=== PATIENT | female | born 1995 | race Caucasian/White ===

== ENCOUNTER → 2017-03-02 | Outpatient (CLI) | payer OTHER ==
--- NOTE | 2017-03-02 15:48 | MR ---
EXAMINATION TYPE: MR lumbar spine wo con DATE OF EXAM: 03/02/2017 COMPARISON: NONE HISTORY: lumbago TECHNIQUE: Multiplanar, multisequence images of the lumbar spine were acquired. L1-L2: Normal disc appearance without desiccation. No herniation, protrusion or disc bulging. No ca nal stenosis is present. Foramina are patent bilaterally. L2-L3: Normal disc appearance without desiccation. No herniation, protrusion or disc bulging. No ca nal stenosis is present. Foramina are patent bilaterally. L3-L4: Normal disc appearance without desiccation. No herniation, protrusion or disc bulging. No ca nal stenosis is present. Foramina are patent bilaterally. L4-L5: Normal disc appearance without desiccation. No herniation, protrusion or disc bulging. No ca nal stenosis is present. Foramina are patent bilaterally. L5-S1: Small broad-based disc bulge is seen without focality to suggest herniation. No neural foramin al narrowing or spinal canal stenosis.. The lumbar spine maintains normal vertebral body height and alignment. No paraspinal masses are iden tified. Conus medullaris has a normal appearance. Bilateral extrarenal pelvises are noted of the kid neys. Rudimentary disc is incidentally noted at S1-S2. Small vertebral body hemangioma seen of L3 pos teriorly and left paracentrally that is T1 and T2 hyperintense. This is a benign finding. IMPRESSION: No evidence of disc herniation, spinal canal stenosis or neural foraminal narrowing. Small broad-base d disc bulge at L5-S1.
== END | disposition home or self-care (01) ==
LOC: RADMRIMAIN 12:25
PROVIDERS: ATTEND Family Medicine
DX: M51.27 Other intervertebral disc displacement, lumbosacral region (principal)
CPT/HCPCS: 72148

== ENCOUNTER 2018-01-25 05:50 | Inpatient (IN) | payer OTHER ==
[2018-01-25] MEDS ORDERED: OXYTOCIN 10 UNIT/ML 1 ML VIAL IM PRN (06:16)
[2018-01-25] MEDS ORDERED: CARBOPROST TROMETHAMINE 250 MCG/ML 1 ML AMP IM PRN (06:16)
[2018-01-25] MEDS ORDERED: TERBUTALINE 1 MG/ML VIAL SQ PRN (06:16)
[2018-01-25] MEDS ORDERED: PENICILLIN G POTASSIUM 5,000,000 UNIT in DEXTROSE 5% IN WATER 100 ML IVPB STA ×2 (06:16)
[2018-01-25] MEDS ORDERED: METHYLERGONOVINE 0.2 MG/ML 1 ML AMP IM PRN (06:16)
[2018-01-25] MEDS ORDERED: LIDOCAINE 1% (PF) 10 MG/ML (30 ML SDV) SQ PRN (06:16)
[2018-01-25] MEDS ORDERED: BUTORPHANOL 1 MG/ML 1 ML VIAL IV PRN (06:17)
[2018-01-25] MEDS ORDERED: CLINDAMYCIN 900 MG in DEXTROSE 5% IN WATER 50 ML IVPB STA ×2 (06:31)
[2018-01-25 06:46] VITALS: BMI 27.8
[2018-01-25] MEDS: LACTATED RINGERS 1,000 ML IV SCH ×2 (06:55→21:34)
[2018-01-25 06:56] LABS: Basophils # (A) 0.1 k/uL (0-0.2); Basophils % (A) 0 %; Eosinophils # (A) 0.2 k/uL (0-0.7); Eosinophils % (A) 1 %; HCT 32.5 % (34.0-46.0); HGB 10.4 gm/dL (11.4-16.0); Lymphocytes # (A) 1.8 k/uL (1.0-4.8); Lymphocytes % (A) 13 %; MCH 28.6 pg (25.0-35.0); MCHC 32.1 g/dL (31.0-37.0); Mean Platelet Volume 7.9; Monocytes # (A) 0.4 k/uL (0-1.0); Monocytes % (A) 3 %; Neutrophils # (A) 11.3 k/uL (1.3-7.7); Neutrophils % (A) 81 %; Platelet Count 202 k/uL (150-450); RBC 3.65 m/uL (3.80-5.40); RDW 14.5 % (11.5-15.5); WBC 13.9 k/uL (3.8-10.6)
[2018-01-25] MEDS ORDERED: ACETAMINOPHEN TAB 325 MG TAB PO PRN (09:38)
[2018-01-25] MEDS ORDERED: diphenhydrAMINE 50 MG CAP PO PRN (09:38)
[2018-01-25] MEDS ORDERED: HYDROCORTISONE 2.5% RECTAL CREAM 30 GM TUBE RECTAL PRN (09:38)
[2018-01-25] MEDS ORDERED: LANOLIN CREAM 5 GM TUBE TOPICAL PRN (09:38)
[2018-01-25] MEDS ORDERED: diphenhydrAMINE 25 MG CAP PO PRN (09:38)
[2018-01-25] MEDS ORDERED: WITCH HAZEL 1 EACH MED..PAD TOPICAL PRN (09:38)
[2018-01-25] MEDS ORDERED: SIMETHICONE 80 MG CHEWABLE PO PRN (09:38)
[2018-01-25] MEDS ORDERED: diphenhydrAMINE 50 MG/ML 1 ML VIAL IVP PRN ×2 (09:38)
[2018-01-25] MEDS ORDERED: BENZOCAINE/MENTHOL SPRAY 1 GM/SPRAY AEROSOL TOPICAL PRN (09:38)
[2018-01-25] MEDS ORDERED: ZOLPIDEM 5 MG TAB PO PRN (09:38)
--- NOTE | 2018-01-25 09:44 | P.HPOB ---
History of Present Illness H&P Date: 01/25/18 Chief Complaint: IUP at 41-0/7 weeks, active labor This is a 22-year-old 1 para 0 at 41-0/7 weeks with an estimated due date 01/21/2018. Patient presents with regular strong contractions for 2 hours prior to admission. Patient denied vaginal bleeding, loss of fluid and notes good movement On blood work her blood type is O+, rubella immune, hepatitis B surface antigen negative, HIV negative, RPR nonreactive, GBS positive. She does have a history of marijuana use in the last urine drug screen the office was negative. Review of Systems Constitutional: Reports fatigue, Denies chills, Denies fever Cardiovascular: Reports edema Respiratory: Denies cough, Denies dyspnea Gastrointestinal: Denies constipation, Denies diarrhea Genitourinary: Reports Past Medical History Past Medical History: Asthma Additional Past Medical History / Comment(s): ASTHMA A CHILD, LAST SEIZURE AT AGE 1 History of Any Multi-Drug Resistant Organisms: None Reported Past Surgical History: Adenoidectomy, Orthopedic Surgery, Tonsillectomy Additional Past Surgical History / Comment(s): RIGHT GREAT TOE Past Anesthesia/Blood Transfusion Reactions: No Reported Reaction Past Psychological History: Depression Smoking Status: Never smoker Past Alcohol Use History: Occasional Past Drug Use History: Marijuana - Past Family History Mother Family Medical History: Cancer Additional Family Medical History / Comment(s): COLON CANCER Father Family Medical History: Cancer Additional Family Medical History / Comment(s): LUNG CANCER Medications and Allergies Home Medications Medication Instructions Recorded Confirmed Type Pnv No.95/Ferrous Fum/Folic AC 1 tab PO ONCE 01/25/18 01/25/18 History [ Multivitamin Tablet] Allergies Allergy/AdvReac Type Severity Reaction Status Date / Time Penicillins Allergy Rash/Hives Verified 01/25/18 06:46 Sulfa (Sulfonamide Allergy Rash/Hives Verified 01/25/18 06:02 Antibiotics) Exam Osteopathic Statement: *. No significant issues noted on an osteopathic structural exam other than those noted in the History and Physical/Consult. Vital Signs Temp Pulse Resp BP Pulse Ox 01/25/18 06:30 96.9 F L 82 16 116/82 99 01/25/18 06:18 96.9 F L 82 16 116/82 99 Intake and Output 01/24/18 01/25/18 01/25/18 22:59 06:59 14:59 Other: Weight 71.214 kg - OBG Physical Exam Abdomen: Cervix: 7, 100, -2 Uterus: enlarged (Appropriate for gestational age) Results Result Diagrams: 01/25/18 06:43 Abnormal Lab Results - Last 24 Hours (Table) 01/25/18 Range/Units 06:43 WBC 13.9 H (3.8-10.6) k/uL RBC 3.65 L (3.80-5.40) m/uL Hgb 10.4 L (11.4-16.0) gm/dL Hct 32.5 L (34.0-46.0) % Neutrophils # 11.3 H (1.3-7.7) k/uL Assessment and Plan (1) Term Current Visit: Yes Status: Acute Code(s): Z34.80 - ENCOUNTER FOR SUPRVSN OF NORMAL , UNSP TRIMESTER SNOMED Code(s): 29508090 (2) Marijuana use Current Visit: Yes Status: Acute Code(s): F12.90 - CANNABIS USE, UNSPECIFIED , UNCOMPLICATED SNOMED Code(s): 481497095 (3) Positive GBS test Current Visit: Yes Status: Acute Code(s): B95.1 - STREPTOCOCCUS, GROUP B, CAUSING DISEASES CLASSD [facility] SNOMED Code(s): 2655752530097 Plan: Admit to labor and delivery with expectant management, anticipate spontaneous vaginal delivery later today. IV antibiotics for GBS prophylaxis
[2018-01-25] MEDS ORDERED: PRENATAL VIT-IRON-FOLIC ACID 1 EACH CAP PO ONE (09:45)
[2018-01-25] MEDS ORDERED: OXYTOCIN 20 UNITS/1000 ML NS 1,000 ML IV SCH (09:45)
--- NOTE | 2018-01-25 09:47 | P.PROBDLV ---
Vaginal Delivery Note - . Vaginal Delivery Note: This is a 22-year-old 1 para 0 at 41-0/7 weeks that presented in active labor. Patient was noted to be 7 cm just after admission. Artificial rupture of membranes was performed clear fluid was obtained. Patient progressed to complete began pushing and had a vacuum-assisted vaginal delivery secondary to bradycardia with , only one pole with pushing was used to deliver the infant, pressure was documented to be in the green once placed. fetus was noted to be in the occiput posterior presentation. The cord was then doubly clamped and cut after a 2 minute waiting period, the placenta was delivered intact with a three-vessel cord noted. Afterwards on inspection the patient's vaginal vault a second-degree vaginal laceration was noted lidocaine was instilled for anesthesia and this was repaired in the usual fashion. Afterwards a rectal exam was completed no abnormalities were noted. Inspection of the vaginal vault was performed no further lacerations were noted, second- degree laceration was noted to be intact after repair. Male was delivered at 9:15, spontaneous cry was noted, weight 6 lbs. 10 oz. with Apgars of 8 and 9 at one and 5 minutes respectively.
[2018-01-25] MEDS ORDERED: PENICILLIN G POTASSIUM 2,500,000 UNIT in DEXTROSE 5% IN WATER 100 ML IVPB SCH ×2 (10:30)
[2018-01-25] MEDS ORDERED: CLINDAMYCIN 900 MG in DEXTROSE 5% IN WATER 50 ML IVPB SCH ×2 (14:30)
[2018-01-25] MEDS: SENNOSIDES-DOCUSATE SODIUM 1 EACH TAB PO SCH (20:28)
[2018-01-26] MEDS: IBUPROFEN 600 MG TAB PO PRN ×2 (07:18→14:20)
[2018-01-26] MEDS: SENNOSIDES-DOCUSATE SODIUM 1 EACH TAB PO SCH (07:44)
[2018-01-26 07:48] LABS: Basophils % (A) 0 %; Eosinophils # (A) 0.1 k/uL (0-0.7); Eosinophils % (A) 1 %; Hypochromasia Slight; Lymphocytes # (A) 2.6 k/uL (1.0-4.8); Lymphocytes % (A) 21 %; MCH 28.5 pg (25.0-35.0); MCHC 31.8 g/dL (31.0-37.0); MCV 89.5 fL (80.0-100.0); Mean Platelet Volume 8.9; Monocytes # (A) 0.7 k/uL (0-1.0); Monocytes % (A) 6 %; Neutrophils # (A) 8.6 k/uL (1.3-7.7); Neutrophils % (A) 70 %; Platelet Count 172 k/uL (150-450); RBC 2.91 m/uL (3.80-5.40); RDW 14.7 % (11.5-15.5); WBC 12.2 k/uL (3.8-10.6)
[2018-01-26 08:00] LABS: HGB 8.3 gm/dL (11.4-16.0)
--- NOTE | 2018-01-26 08:28 | P.PNOBGVD ---
Subjective - Subjective Principal diagnosis: day 1 Patient reports: Reports appetite normal, Reports voiding normally, Reports pain well controlled, Reports ambulating normally [place]: doing well, nursing well Objective - Latest Vital Signs Latest vital signs: Vital Signs Temp Pulse Resp BP 01/26/18 00:00 98.2 F 78 16 93/46 01/25/18 20:00 98.4 F 82 16 103/62 01/25/18 15:55 97.4 F L 78 14 136/72 01/25/18 12:00 97.4 F L 76 16 116/65 01/25/18 11:24 96.9 F L 75 14 120/59 01/25/18 11:01 63 16 127/75 01/25/18 10:31 73 14 111/61 01/25/18 10:16 72 14 117/58 01/25/18 10:01 79 16 124/57 01/25/18 09:46 78 16 152/65 01/25/18 09:31 96.9 F L 87 16 139/76 - Exam Extremities: Present: normal Uterus: Present: normal, firm. Absent: tenderness - Labs Labs: Abnormal Lab Results - Last 24 Hours (Table) 01/26/18 Range/Units 07:22 WBC 12.2 H (3.8-10.6) k/uL RBC 2.91 L (3.80-5.40) m/uL Hgb 8.3 L D (11.4-16.0) gm/dL Hct 26.0 L (34.0-46.0) % Neutrophils # 8.6 H (1.3-7.7) k/uL Assessment and Plan (1) Marijuana use Current Visit: Yes Status: Acute Code(s): F12.90 - CANNABIS USE, UNSPECIFIED , UNCOMPLICATED SNOMED Code(s): 705531314 (2) Positive GBS test Current Visit: Yes Status: Acute Code(s): B95.1 - STREPTOCOCCUS, GROUP B, CAUSING DISEASES CL[facility]SD [facility] SNOMED Code(s): 9722831705972 (3) Term Current Visit: Yes Status: Acute Code(s): Z34.80 - ENCOUNTER FOR SUPRVSN OF NORMAL , UNSP TRIMESTER SNOMED Code(s): 38160232 (4) Vacuum extraction, delivered, current hospitalization Current Visit: Yes Status: Acute Code(s): O66.5 - ATTEMPTED APPLICATION OF VACUUM EXTRACTOR AND FORCEPS SNOMED Code(s): 293128681 Plan: day #1 status post vacuum-assisted vaginal delivery. Recovering well. Anticipate discharge home tomorrow.
[2018-01-26 21:08] VITALS: RESP 16
[2018-01-27] MEDS: SENNOSIDES-DOCUSATE SODIUM 1 EACH TAB PO SCH (01:39)
[2018-01-27] MEDS: IBUPROFEN 600 MG TAB PO PRN ×2 (06:16→14:56)
--- NOTE | 2018-01-27 10:28 | P.DS ---
Providers Date of admission: 01/25/18 06:27 Expected date of discharge: 01/27/18 Attending physician: Iman Peguero - Discharge Diagnosis(es) (1) Term Current Visit: Yes Status: Acute (2) Vacuum extraction, delivered, current hospitalization Current Visit: Yes Status: Acute Hospital Course: The patient is a 22-year-old 1 para 0 admitted at 41-0/7 weeks by good dating parameters. She is admitted in active labor with all signs reassuring. Her has been uncomplicated aside from documented marijuana use. On labor and delivery, she had artificial rupture of membranes demonstrating clear fluid and made progress to complete. She then pushed to at which time bradycardia was noted. A mighty Vac vacuum was applied to the occiput and the infant delivered with 1 pull along with maternal effort. Her course was unremarkable with vital signs remaining stable and her temperature was afebrile throughout. She did have a social sciences lecturer consult performed with no significant findings or alterations and plan. She was deemed stable for discharge on day #2 was discharged home to follow-up in the office in 6 weeks routinely. Discharge instructions included calling for any significantly increased bleeding or foul-smelling lochia, significantly increased fever abdominal pain, perineal complaints, breast complaints, or anything else that concerned her. She was additionally instructed to have nothing in the vagina for at least 6 weeks time to include intercourse. She understood her instructions and agrees to follow up as noted above. Discharge medications included a prescription for Motrin 600 mg 1 by mouth every 6 hours when necessary pain, #50 dispensed with no refills. She was otherwise to continue vitamins as she has opted to breast-feed. Maternal blood type is O+ and rubella status is immune. Procedures: #1. Artificial rupture of membranes #2. Outlet vacuum extraction #3. Repair of perineal laceration #4. dietary services manager consult Patient Condition at Discharge: Stable Plan - Discharge Summary New Discharge Prescriptions: No Action Pnv No.95/Ferrous Fum/Folic AC [ Multivitamin Tablet] 1 tab PO ONCE Discharge Medication List Pnv No.95/Ferrous Fum/Folic AC [ Multivitamin Tablet] 1 tab PO ONCE [History] Follow up Appointment(s)/Referral(s): Nafisa Muñoz DO [Doctor of Osteopathic Medicine] - 6 Weeks Discharge Disposition: HOME SELF-CARE
[2018-01-27 16:58] VITALS: BP 99/56; PULSE 65; TEMP 98.3
== END 2018-01-27 18:50 | disposition home or self-care (01) | DRG 775 ==
LOC: FBPOP 05:50 → 4FBP 06:27
PROVIDERS: ADMIT Obstetrics & Gynecology Obstetrics; ATTEND Obstetrics & Gynecology
PROC: 10D07Z6 Extraction of Products of Conception, Vacuum, Via Natural or Artificial Opening (ICD-10-PCS; principal; 2018-01-25)
PROC: 0KQM0ZZ Repair Perineum Muscle, Open Approach (ICD-10-PCS; 2018-01-25)
DX: O99.824 Streptococcus B carrier state complicating childbirth (principal); O99.344 Other mental disorders complicating childbirth; O99.324 Drug use complicating childbirth; O76 Abnormality in fetal heart rate and rhythm complicating labor and delivery; F12.90 Cannabis use, unspecified, uncomplicated; F32.9 Major depressive disorder, single episode, unspecified; O70.1 Second degree perineal laceration during delivery; Z37.0 Single live birth; Z3A.41 41 weeks gestation of pregnancy; Z87.09 Personal history of other diseases of the respiratory system; Z86.69 Personal history of other diseases of the nervous system and sense organs; Z80.0 Family history of malignant neoplasm of digestive organs; Z80.1 Family history of malignant neoplasm of trachea, bronchus and lung; Z88.0 Allergy status to penicillin; Z88.2 Allergy status to sulfonamides
CPT/HCPCS: 59025; 85025; 88307; 99213

== ENCOUNTER 2018-07-11 18:12 | Emergency (ER) | payer OTHER ==
[2018-07-11 18:24] VITALS: BP 114/69; PULSE 72; RESP 18; TEMP 98.3
--- NOTE | 2018-07-11 19:28 | ED ---
Lower Extremity Injury HPI - General Chief Complaint: Extremity Injury, Lower Stated Complaint: Ankle injury Time Seen by Provider: 07/11/18 19:15 Source: patient, RN notes reviewed Mode of arrival: ambulatory Limitations: no limitations - History of Present Illness Initial Comments: 23-year-old female presents emergency Department with chief complaint of left knee, left ankle pain. Patient states that she's also told him it tipped to the side onto her left ankle and knee. Patient states that she is able bear weight. Denies any head injury denies any hip, abdominal injury. Patient states that she was just concerned as it felt swollen and painful. - Related Data Home Medications Medication Instructions Recorded Confirmed Pnv No.95/Ferrous Fum/Folic AC 1 tab PO ONCE 01/25/18 01/25/18 [ Multivitamin Tablet] Previous Rx's Medication Instructions Recorded Ibuprofen [Motrin] 600 mg PO Q8HR PRN #30 tab 07/11/18 Allergies Allergy/AdvReac Type Severity Reaction Status Date / Time Penicillins Allergy Rash/Hives Verified 07/11/18 18:24 Sulfa (Sulfonamide Allergy Rash/Hives Verified 07/11/18 18:24 Antibiotics) Review of Systems ROS Statement: Those systems with pertinent positive or pertinent negative responses have been documented in the HPI. ROS Other: All systems not noted in ROS Statement are negative. Past Medical History Past Medical History: Asthma Additional Past Medical History / Comment(s): ASTHMA A CHILD, LAST SEIZURE AT AGE 1 History of Any Multi-Drug Resistant Organisms: None Reported Past Surgical History: Adenoidectomy, Orthopedic Surgery, Tonsillectomy Additional Past Surgical History / Comment(s): RIGHT GREAT TOE Past Anesthesia/Blood Transfusion Reactions: No Reported Reaction Past Psychological History: Depression Smoking Status: Current every day smoker Past Alcohol Use History: Occasional Past Drug Use History: None Reported, Marijuana - Past Family History Mother Family Medical History: Cancer Additional Family Medical History / Comment(s): COLON CANCER Father Family Medical History: Cancer Additional Family Medical History / Comment(s): LUNG CANCER General Exam Limitations: no limitations General appearance: alert, in no apparent distress Head exam: Present: atraumatic, normocephalic, normal inspection Neck exam: Present: normal inspection, full ROM. Absent: tenderness, meningismus, lymphadenopathy Respiratory exam: Present: normal lung sounds bilaterally. Absent: respiratory distress, wheezes, rales, rhonchi, stridor Cardiovascular Exam: Present: regular rate, normal rhythm, normal heart sounds. Absent: systolic murmur, diastolic murmur, rubs, gallop, clicks GI/Abdominal exam: Present: soft, normal bowel sounds. Absent: distended, tenderness, guarding, rebound, rigid Extremities exam: Present: other (Left knee there is no medial tenderness noted , no swelling no ecchymosis, full range of motion neurovascular intact, no mid tib-fib tenderness there is mild medial malleoli tenderness with no foot tenderness noted no obvious deformity) Neurological exam: Present: alert, oriented X3, CN II-XII intact, reflexes normal. Absent: motor sensory deficit Course Vital Signs 07/11/18 18:21 Temperature 98.3 F Pulse Rate 72 Respiratory 18 Rate Blood Pressure 114/69 Medical Decision Making - Medical Decision Making 23-year-old female presented for left knee and left ankle injury. Patient had x -rays no acute fracture. Patient discharged with ibuprofen. Return parameters were discussed. - Lab Data Lab Results 07/11/18 Range/Units 19:00 Urine HCG, Qual Not Detected (Not Detectd) Disposition Clinical Impression: Left ankle sprain, Knee contusion Disposition: HOME SELF-CARE Condition: Stable Instructions (If sedation given, give patient instructions): Ankle Sprain (ED) Additional Instructions: Please return to the Emergency Department if symptoms worsen or any other concerns. Prescriptions: Ibuprofen [Motrin] 600 mg PO Q8HR PRN #30 tab PRN Reason: Pain Is patient prescribed a controlled substance at d/c from ED?: No Referrals: Mel Taylor DO [Primary Care Provider] - 1-2 days Time of Disposition: 20:51
--- NOTE | 2018-07-11 20:09 | XR ---
PROCEDURE: XR ankle complete LT - 3V DATE AND TIME: 07/11/2018 7:56 PM CLINICAL INDICATION: PHH; Pain TECHNIQUE: Department protocol COMPARISON: None FINDINGS: There is no fracture or malalignment. Mortise is intact. The soft tissues are unremarkable. IMPRESSION: NO ACUTE PROCESS.
--- NOTE | 2018-07-11 20:14 | XR ---
PROCEDURE: XR knee complete LT - 3V DATE AND TIME: 07/11/2018 7:57 PM CLINICAL INDICATION: PHH; Pain TECHNIQUE: Department protocol COMPARISON: None FINDINGS: There is no fracture or malalignment. The soft tissues are unremarkable. IMPRESSION: NO ACUTE PROCESS.
== END 2018-07-11 20:59 | disposition home or self-care (01) ==
LOC: EC 18:12
DX: S93.402A Sprain of unspecified ligament of left ankle, initial encounter (principal); S80.02XA Contusion of left knee, initial encounter; F17.200 Nicotine dependence, unspecified, uncomplicated; Z88.0 Allergy status to penicillin; Z88.2 Allergy status to sulfonamides; V86.92XA Unspecified occupant of snowmobile injured in nontraffic accident, initial encounter
CPT/HCPCS: 81025; 99283

== ENCOUNTER 2019-04-27 10:30 | Inpatient (IN) | payer OTHER ==
[2019-04-27] MEDS ORDERED: OXYTOCIN 10 UNIT/ML 1 ML VIAL IM PRN (11:56)
[2019-04-27] MEDS ORDERED: TERBUTALINE 1 MG/ML VIAL SQ PRN (11:56)
[2019-04-27] MEDS ORDERED: CARBOPROST TROMETHAMINE 250 MCG/ML 1 ML AMP IM PRN (11:56)
[2019-04-27] MEDS ORDERED: LIDOCAINE 0.5% (PF) 5 MG/ML (50 ML SDV) SQ PRN (11:56)
[2019-04-27] MEDS ORDERED: METHYLERGONOVINE 0.2 MG/ML 1 ML AMP IM PRN (11:56)
[2019-04-27] MEDS ORDERED: CLINDAMYCIN 900 MG in DEXTROSE 5% IN WATER 50 ML IVPB SCH ×2 (12:00)
[2019-04-27] MEDS ORDERED: LACTATED RINGERS 1,000 ML IV SCH (12:00)
[2019-04-27 12:22] LABS: Basophils % (A) 0 %; Eosinophils # (A) 0.2 k/uL (0-0.7); Eosinophils % (A) 1 %; HCT 30.3 % (34.0-46.0); HGB 9.7 gm/dL (11.4-16.0); Hypochromasia Slight; Lymphocytes # (A) 1.5 k/uL (1.0-4.8); Lymphocytes % (A) 11 %; MCH 26.3 pg (25.0-35.0); MCHC 31.9 g/dL (31.0-37.0); MCV 82.3 fL (80.0-100.0); Mean Platelet Volume 7.7; Monocytes # (A) 0.6 k/uL (0-1.0); Monocytes % (A) 4 %; Neutrophils # (A) 11.3 k/uL (1.3-7.7); Neutrophils % (A) 82 %; Platelet Count 240 k/uL (150-450); RBC 3.68 m/uL (3.80-5.40); RDW 15.4 % (11.5-15.5); WBC 13.8 k/uL (3.8-10.6)
[2019-04-27] MEDS ORDERED: diphenhydrAMINE 50 MG CAP PO PRN (13:28)
[2019-04-27] MEDS ORDERED: WITCH HAZEL 1 EACH MED..PAD TOPICAL PRN (13:28)
[2019-04-27] MEDS ORDERED: ZOLPIDEM 5 MG TAB PO PRN (13:28)
[2019-04-27] MEDS ORDERED: diphenhydrAMINE 25 MG CAP PO PRN (13:28)
[2019-04-27] MEDS ORDERED: HYDROCORTISONE 2.5% RECTAL CREAM 30 GM TUBE RECTAL PRN (13:28)
[2019-04-27] MEDS ORDERED: diphenhydrAMINE 50 MG/ML 1 ML VIAL IVP PRN ×2 (13:28)
[2019-04-27] MEDS ORDERED: SIMETHICONE 80 MG CHEWABLE PO PRN (13:28)
[2019-04-27] MEDS ORDERED: BENZOCAINE/MENTHOL SPRAY 1 GM/SPRAY AEROSOL TOPICAL PRN (13:28)
[2019-04-27] MEDS ORDERED: LANOLIN CREAM 5 GM TUBE TOPICAL PRN (13:28)
[2019-04-27] MEDS ORDERED: ACETAMINOPHEN TAB 325 MG TAB PO PRN (13:28)
[2019-04-27] MEDS ORDERED: OXYTOCIN 20 UNITS/1000 ML NS 1,000 ML IV SCH (13:30)
--- NOTE | 2019-04-27 13:35 | P.HPOB ---
History of Present Illness H&P Date: 04/27/19 Chief Complaint: normal labor 23 year old G tube P1 presents at 39 weeks and 2 days in active labor. Her cervix was 4 cm dilated and it changed to 6 cm dilated, 80% effaced, and -3 station. She is staic every 3 minutes. heart tones 140 with moderate variability and reactive. Patient is GBS positive and we discussed this in the office she is now refusing antibiotics. Review of Systems All systems: negative Constitutional: Denies chills, Denies fever Eyes: denies blurred vision, denies pain Ears, nose, mouth and throat: Denies headache, Denies sore throat Cardiovascular: Denies chest pain, Denies shortness of breath Respiratory: Denies cough Gastrointestinal: Denies abdominal pain, Denies diarrhea, Denies nausea, Denies vomiting Genitourinary: Denies dysuria, Denies hematuria Musculoskeletal: Denies myalgias Integumentary: Denies pruritus, Denies rash Neurological: Denies numbness, Denies weakness Psychiatric: Denies anxiety, Denies depression Endocrine: Denies fatigue, Denies weight change Past Medical History Past Medical History: Asthma Additional Past Medical History / Comment(s): ASTHMA A CHILD, LAST SEIZURE AT AGE 1 reported by pts mother. Obstetric history: First was a vacuum-assisted vaginal delivery 15 months ago. This is her second . She is O+, antibody is negative, rubella nonimmune, hepatitis B negative, GBS positive but refusing antibiotics. History of Any Multi-Drug Resistant Organisms: None Reported Past Surgical History: Adenoidectomy, Orthopedic Surgery, Tonsillectomy Additional Past Surgical History / Comment(s): RIGHT GREAT TOE Past Anesthesia/Blood Transfusion Reactions: No Reported Reaction Past Psychological History: Depression Smoking Status: Never smoker Past Alcohol Use History: None Reported Past Drug Use History: None Reported - Past Family History Mother Family Medical History: Cancer Additional Family Medical History / Comment(s): COLON CANCER Father Family Medical History: Cancer Additional Family Medical History / Comment(s): LUNG CANCER Medications and Allergies Home Medications Medication Instructions Recorded Confirmed Type Pnv No.95/Ferrous Fum/Folic AC 1 tab PO ONCE 01/25/18 04/27/19 History [ Multivitamin Tablet] Ibuprofen [Motrin] 600 mg PO Q8HR PRN #30 tab 07/11/18 04/27/19 Rx Allergies Allergy/AdvReac Type Severity Reaction Status Date / Time Penicillins Allergy Rash/Hives Verified 04/27/19 10:34 Sulfa (Sulfonamide Allergy Rash/Hives Verified 04/27/19 10:34 Antibiotics) Exam Osteopathic Statement: *. No significant issues noted on an osteopathic structural exam other than those noted in the History and Physical/Consult. Vital Signs Temp Pulse Resp BP Pulse Ox 04/27/19 10:32 97.5 F L 79 17 122/68 100 Intake and Output 04/26/19 04/27/19 04/27/19 22:59 06:59 14:59 Other: Weight 73.936 kg Heart: Regular rate and rhythm Lungs: Clear to auscultation bilaterally Abdomen: Soft, nontender Extremities: Negative Homans sign Results Result Diagrams: 04/27/19 12:00 Abnormal Lab Results - Last 24 Hours (Table) 04/27/19 Range/Units 12:00 WBC 13.8 H (3.8-10.6) k/uL RBC 3.68 L (3.80-5.40) m/uL Hgb 9.7 L (11.4-16.0) gm/dL Hct 30.3 L (34.0-46.0) % Neutrophils # 11.3 H (1.3-7.7) k/uL Assessment and Plan (1) Normal labor Current Visit: Yes Status: Acute Code(s): O80 - ENCOUNTER FOR FULL-TERM UNCOMPLICATED DELIVERY; Z37.9 - OUTCOME OF DELIVERY, UNSPECIFIED SNOMED Code(s): 99735866 (2) Positive GBS test Current Visit: No Status: Acute Code(s): B95.1 - STREPTOCOCCUS, GROUP B, CAUSING DISEASES CLASSD [facility] SNOMED Code(s): 136802370 Plan: 1. Admit to family place 2. I have discussed the risks benefits and alternatives of using antibiotic treatment during labor to prevent GBS transmission to the baby. The patient is still refusing antibiotics and knows the baby will have to have blood drawn and possibly treated with antibiotics.
--- NOTE | 2019-04-27 13:36 | P.PROBDLV ---
Vaginal Delivery Note - . Vaginal Delivery Note: 23-year-old presents at 39 weeks and 2 days in active labor. Her cervix was 4 centers dilated in triage. Her cervix changed to 6 cm dilated, 80% effaced, -3 station. She is staci every 3 minutes. heart tones 140 with moderate variability and reactive. She was admitted to [facility] an IV fluids were started. Amniotomy was performed at 1220 and clear fluid noted. Her cervix was completely dilated at 1249. She pushed, delivered a viab le male over intact perineum at 1302. Head delivered SUMMER the, nuchal cord 1 easily reduced, anterior shoulder delivered gentle downward guidance followed by posterior shoulder and rest of body. Nose and mouth bulb suctioned, cord clamped and cut, infant placed mother's abdomen. Apgars 8, 9, weight 7 lbs. 8 oz. Placenta delivered spontaneously, intact with three-vessel cord at 1305. Vagina, cervix, perineum inspected. Second-degree midline laceration was repaired with 2-0 Vicryl and 3-0 Vicryl. Estimated blood loss 1250 mL. Mother and baby in stable condition.
[2019-04-27] MEDS: SENNOSIDES-DOCUSATE SODIUM 1 EACH TAB PO SCH (20:00)
[2019-04-27] MEDS: IBUPROFEN 600 MG TAB PO PRN (22:05)
[2019-04-28 06:00] LABS: Basophils % (A) 0 %; Eosinophils # (A) 0.2 k/uL (0-0.7); Eosinophils % (A) 1 %; HCT 26.2 % (34.0-46.0); HGB 8.4 gm/dL (11.4-16.0); Hypochromasia Slight; Lymphocytes % (A) 14 %; MCH 26.3 pg (25.0-35.0); MCHC 32.1 g/dL (31.0-37.0); MCV 82.1 fL (80.0-100.0); Mean Platelet Volume 8.4; Monocytes # (A) 0.8 k/uL (0-1.0); Monocytes % (A) 6 %; Neutrophils # (A) 10.6 k/uL (1.3-7.7); Neutrophils % (A) 77 %; Platelet Count 241 k/uL (150-450); RDW 15.4 % (11.5-15.5); WBC 13.8 k/uL (3.8-10.6)
[2019-04-28] MEDS: IBUPROFEN 600 MG TAB PO PRN ×3 (07:27→19:19)
[2019-04-28] MEDS: SENNOSIDES-DOCUSATE SODIUM 1 EACH TAB PO SCH ×2 (08:19→19:20)
--- NOTE | 2019-04-28 09:18 | P.PNOBGVD ---
Subjective - Subjective Principal diagnosis: Status post normal vaginal delivery day #1 Interval history: Patient seen and examined. Denies nausea, vomiting, chest and, shortness of breath or calf pain. Patient reports: Reports appetite normal, Reports voiding normally, Reports pain well controlled, Reports ambulating normally [place]: doing well Objective - Latest Vital Signs Latest vital signs: Vital Signs Temp Pulse Resp BP Pulse Ox 04/28/19 07:49 97.7 F 60 18 114/70 04/28/19 00:00 97.8 F 68 16 121/74 04/27/19 19:58 98.4 F 82 16 118/70 99 04/27/19 15:34 67 16 115/67 04/27/19 15:04 80 16 105/68 04/27/19 14:30 63 17 110/64 04/27/19 14:15 68 16 116/65 04/27/19 14:00 74 17 119/64 04/27/19 13:46 77 16 122/59 04/27/19 13:30 78 17 117/62 04/27/19 10:32 97.5 F L 79 17 122/68 100 Intake and Output 04/27/19 04/28/19 04/28/19 22:59 06:59 14:59 Other: # Voids 1 2 - Exam Lungs: bilateral: normal Chest: Normal S1, Normal S2 Extremities: Present: normal Abdomen: Present: normal appearance, soft Uterus: Present: normal, firm - Labs Labs: Abnormal Lab Results - Last 24 Hours (Table) 04/27/19 04/28/19 Range/Units 12:00 05:36 WBC 13.8 H 13.8 H (3.8-10.6) k/uL RBC 3.68 L 3.20 L (3.80-5.40) m/uL Hgb 9.7 L 8.4 L (11.4-16.0) gm/dL Hct 30.3 L 26.2 L (34.0-46.0) % Neutrophils # 11.3 H 10.6 H (1.3-7.7) k/uL Assessment and Plan (1) Normal labor Current Visit: Yes Status: Resolved Code(s): O80 - ENCOUNTER FOR FULL-TERM UNCOMPLICATED DELIVERY; Z37.9 - OUTCOME OF DELIVERY, UNSPECIFIED SNOMED Code(s): 98439700 (2) Positive GBS test Current Visit: No Status: Resolved Code(s): B95.1 - STREPTOCOCCUS, GROUP B, CAUSING DISEASES CLASSD [facility] SNOMED Code(s): 885064413 (3) Status post normal vaginal delivery Current Visit: Yes Status: Acute Code(s): GOF6422 - SNOMED Code(s): 994868836 Plan: 1. Continue care
[2019-04-28 22:56] VITALS: PULSE 74
[2019-04-29] MEDS: IBUPROFEN 600 MG TAB PO PRN ×2 (07:29→15:12)
[2019-04-29 07:46] VITALS: BP 104/64; RESP 16; TEMP 97.5
--- NOTE | 2019-04-29 09:26 | P.DS ---
Providers Date of admission: 04/27/19 11:44 Expected date of discharge: 04/29/19 Attending physician: Melissa Coelho Primary care physician: Stated None - Discharge Diagnosis(es) (1) Normal labor Current Visit: Yes Status: Resolved (2) Status post normal vaginal delivery Current Visit: Yes Status: Acute Hospital Course: Patient presented in active labor. She underwent a normal vaginal delivery. her course was uncomplicated. She'll be discharged home day #2 in stable condition to follow-up with me in 6 weeks. Plan - Discharge Summary New Discharge Prescriptions: No Action Pnv No.95/Ferrous Fum/Folic AC [ Multivitamin Tablet] 1 tab PO ONCE Ibuprofen [Motrin] 600 mg PO Q8HR PRN #30 tab PRN Reason: Pain Discharge Medication List Pnv No.95/Ferrous Fum/Folic AC [ Multivitamin Tablet] 1 tab PO ONCE 01/25/18 [History] Ibuprofen [Motrin] 600 mg PO Q8HR PRN #30 tab 07/11/18 [Rx]
[2019-04-29] MEDS: SENNOSIDES-DOCUSATE SODIUM 1 EACH TAB PO SCH (15:12)
== END 2019-04-29 17:00 | disposition home or self-care (01) | DRG 807 ==
LOC: FBPOP 10:30 → 4FBP 11:44
PROVIDERS: ADMIT Obstetrics & Gynecology; ATTEND Obstetrics & Gynecology
PROC: 10907ZC Drainage of Amniotic Fluid, Therapeutic from Products of Conception, Via Natural or Artificial Opening (ICD-10-PCS; principal; 2019-04-27)
PROC: 0KQM0ZZ Repair Perineum Muscle, Open Approach (ICD-10-PCS; principal; 2019-04-27)
PROC: 10E0XZZ Delivery of Products of Conception, External Approach (ICD-10-PCS; principal; 2019-04-27)
DX: O69.81X0 Labor and delivery complicated by cord around neck, without compression, not applicable or unspecified (principal); Z37.0 Single live birth; O70.1 Second degree perineal laceration during delivery; Z3A.39 39 weeks gestation of pregnancy; Z80.0 Family history of malignant neoplasm of digestive organs; Z80.1 Family history of malignant neoplasm of trachea, bronchus and lung; Z87.09 Personal history of other diseases of the respiratory system; Z88.0 Allergy status to penicillin; Z88.2 Allergy status to sulfonamides; O99.824 Streptococcus B carrier state complicating childbirth; Z53.29 Procedure and treatment not carried out because of patient's decision for other reasons
CPT/HCPCS: 85025; 86803; 86850; 86900; 86901

== ENCOUNTER → 2023-06-10 | Outpatient (CLI) | payer OTHER ==
[2023-06-10 14:36] LABS: HCT 40.2 % (37.2-46.3); HGB 13.5 g/dL (12.0-15.0); MCH 30.7 pg (27.0-32.0); MCHC 33.6 g/dL (32.0-37.0); MCV 91.4 FL (80.0-97.0); NRBC Per 100 WBC 0 X 10*3/uL (0.00-0.01); Platelet Count 253 X 10*3/uL (140-440); RDW 13.3 % (11.5-14.5); WBC 6.27 X 10*3/uL (4.50-10.00)
[2023-06-10 14:56] LABS: BUN/Creat Ratio 10.43 Ratio (12.00-20.00); Blood Urea Nitrogen 7.3 mg/dL (9.0-27.0); Glucose 90 mg/dL (70-110)
[2023-06-10 14:57] LABS: ALT 17 U/L (8-44); AST 23 U/L (13-35); Alkaline Phosphatase 70 U/L (41-126); Calcium 10.1 mg/dL (8.7-10.3); Carbon Dioxide 24.6 mmol/L (21.6-31.8); Chloride 103 mmol/L (96-109); Globulin 2.5 g/dL (1.6-3.3); Potassium 4.1 mmol/L (3.5-5.5); Sodium 140 mmol/L (135-145); Total Bilirubin 0.4 mg/dL (0.3-1.2); Total Protein 7.5 g/dL (6.2-8.2)
== END | disposition home or self-care (01) ==
LOC: LABWHC1 10:44
PROVIDERS: ATTEND Physician Assistant Medical
DX: R00.2 Palpitations (principal); R07.9 Chest pain, unspecified; R53.83 Other fatigue; R73.01 Impaired fasting glucose
CPT/HCPCS: 36415; 80053; 82607; 82746; 83036; 84443; 85027

== ENCOUNTER 2024-04-04 17:33 | Inpatient (IN) | payer OTHER ==
[2024-04-04] MEDS: LIDOCAINE 0.5% (PF) 5 MG/ML (50 ML SDV) SQ PRN (17:51)
[2024-04-04] MEDS ORDERED: diphenhydrAMINE 50 MG CAP PO PRN (19:22)
[2024-04-04] MEDS ORDERED: diphenhydrAMINE 25 MG CAP PO PRN (19:22)
[2024-04-04] MEDS ORDERED: LANOLIN CREAM 1 GM TUBE TOPICAL PRN (19:22)
[2024-04-04] MEDS ORDERED: HYDROCORTISONE 2.5% RECTAL CREAM 30 GM TUBE RECTAL PRN (19:22)
[2024-04-04] MEDS ORDERED: BENZOCAINE/MENTHOL SPRAY 1 GM/SPRAY AEROSOL TOPICAL PRN (19:22)
[2024-04-04] MEDS ORDERED: ZOLPIDEM 5 MG TAB PO PRN (19:22)
[2024-04-04] MEDS: IBUPROFEN 800 MG TAB PO SCH (20:00)
[2024-04-04] MEDS: SENNOSIDES-DOCUSATE SODIUM 1 EACH TAB PO SCH (20:01)
[2024-04-04 20:02] LABS: Basophils % (A) 0 %; Eosinophils # (A) 0.1 k/uL (0-0.7); Eosinophils % (A) 0 %; HCT 35.2 % (34.0-46.0); HGB 11.2 gm/dL (11.4-16.0); Hypochromasia Slight; Lymphocytes # (A) 1.9 k/uL (1.0-4.8); Lymphocytes % (A) 11 %; MCH 27.7 pg (25.0-35.0); MCHC 31.9 g/dL (31.0-37.0); MCV 86.8 fL (80.0-100.0); Mean Platelet Volume 9.4; Monocytes # (A) 0.8 k/uL (0-1.0); Monocytes % (A) 5 %; Neutrophils # (A) 14.4 k/uL (1.3-7.7); Neutrophils % (A) 83 %; Platelet Count 259 k/uL (150-450); RBC 4.05 m/uL (3.80-5.40); RDW 14.7 % (11.5-15.5); WBC 17.4 k/uL (3.8-10.6)
[2024-04-04] MEDS ORDERED: TRANEXAMIC 1,000 MG/100ML-NACL 1,000 MG in EMPTY BAG 1 BAG IV PRN (20:16)
[2024-04-04] MEDS ORDERED: METHYLERGONOVINE 0.2 MG/ML 1 ML AMP IM PRN (20:16)
[2024-04-04] MEDS ORDERED: miSOPROStoL 200 MCG TAB RECTAL PRN (20:16)
[2024-04-04] MEDS ORDERED: OXYTOCIN 10 UNIT/ML 1 ML VIAL IM PRN (20:16)
[2024-04-04] MEDS ORDERED: CARBOPROST TROMETHAMINE 250 MCG/ML 1 ML AMP IM PRN (20:16)
[2024-04-04] MEDS ORDERED: miSOPROStoL 200 MCG TAB PO PRN (20:16)
[2024-04-05] MEDS: ACETAMINOPHEN TAB 500 MG TAB PO SCH (05:29)
[2024-04-05 05:49] LABS: Appearance,Urine Clear (Clear); Bacteria,Urine Rare /hpf; Bilirubin,Urine Negative (Negative); Blood,Urine Large (Negative); Color,Urine Colorless; Glucose,Urine (UA) Negative (Negative); Ketones,Urine Negative (Negative); Leukocyte Esterase,Urine Moderate (Negative); Mucus,Urine Rare /hpf; Nitrite,Urine Negative (Negative); Protein,Urine Trace (Negative); RBC,Urine >182 /hpf (0-5); Specific Gravity,Urine 1.013 (1.001-1.035); Squamous Epithelial Cell,Urine 1 /hpf (0-4); Urobilinogen,Urine <2.0 mg/dL (<2.0); WBC,Urine 34 /hpf (0-5)
[2024-04-05 05:54] LABS: Amphetamine Screen,Urine Not Detected (NotDetected); Barbiturate Screen,Urine Not Detected (NotDetected); Benzodiazepines Screen,Urine Not Detected (NotDetected); Cocaine Screen,Urine Not Detected (NotDetected); Methadone Screen, Urine Not Detected (NotDetected); Opiate Screen,Urine Not Detected (NotDetected); Oxycodone Screen, Urine Not Detected (NotDetected); Phencyclidine Screen,Urine Not Detected (NotDetected); Tricyclic Antidepressant,Urine Not Detected (NotDetected); Urn Cannabinoid Scrn Detected (NotDetected)
--- NOTE | 2024-04-05 08:38 | P.HPOB ---
History of Present Illness H&P Date: 04/05/24 Chief Complaint: 40-4/7 weeks, active labor The patient is a 28-year-old 4 para 3-0-0-3 who presented to labor and delivery at 40-4/7 weeks by uncertain dating parameters in active labor and actively delivering. She has had no local care but reportedly has had an uncomplicated to this point. labs and group B strep status are unknown. Obstetrical history: 4 para 3-0-0-3 with 3 term vaginal deliveries reportedly without complication. Current statistics are limited to what is noted in history of present illness. No labs are available at this time. Gynecologic history: Reportedly unremarkable with no history of any infections to include STDs. Review of Systems Review of systems is confined to history of present illness. Past Medical History Past Medical History: Asthma Additional Past Medical History / Comment(s): ASTHMA A CHILD, LAST SEIZURE AT AGE 1 reported by pts mother. Obstetric history: First was a vacuum-assisted vaginal delivery 15 months ago. This is her second . She is O+, antibody is negative, rubella nonimmune, hepatitis B negative, GBS positive but refusing antibiotics. History of Any Multi-Drug Resistant Organisms: None Reported Past Surgical History: Adenoidectomy, Orthopedic Surgery, Tonsillectomy Additional Past Surgical History / Comment(s): RIGHT GREAT TOE Past Anesthesia/Blood Transfusion Reactions: No Reported Reaction Past Psychological History: Depression Smoking Status: Never smoker Past Alcohol Use History: None Reported Past Drug Use History: None Reported - Past Family History Mother Family Medical History: Cancer Additional Family Medical History / Comment(s): COLON CANCER Father Family Medical History: Cancer Additional Family Medical History / Comment(s): LUNG CANCER Medications and Allergies Home Medications Medication Instructions Recorded Confirmed Type No Known Home Medications 04/04/24 04/04/24 History Allergies Allergy/AdvReac Type Severity Reaction Status Date / Time Penicillins Allergy Rash/Hives Verified 04/27/19 10:34 Sulfa (Sulfonamide Allergy Rash/Hives Verified 04/27/19 10:34 Antibiotics) Exam Vital Signs Temp Pulse Resp BP Pulse Ox 04/05/24 07:55 98.0 F 73 18 116/74 98 04/05/24 00:00 98.2 F 66 16 104/72 99 04/04/24 20:33 97 F L 76 16 110/58 04/04/24 20:18 68 16 113/57 04/04/24 20:03 80 18 128/77 04/04/24 19:48 69 16 119/69 04/04/24 19:33 66 16 113/58 04/04/24 19:18 60 16 111/55 04/04/24 19:00 68 16 126/59 04/04/24 18:43 65 16 116/63 04/04/24 18:33 97.1 F L 63 16 102/59 Intake and Output 04/04/24 04/05/24 04/05/24 22:59 06:59 14:59 Intake Total 600 Output Total 111 Balance 489 Intake: Oral 600 Output: Output, Quantitative 111 Blood Loss Other: # Voids 1 2 Weight 74.843 kg In general, this is a well-developed well-nourished white female in significant discomfort when she arrived as she was about to deliver. Her heart has a regular rhythm and rate without murmur. Her lungs are clear to auscultation bilateral in all [place]. Her abdomen was gravid, nontender aside from uterine contractions, and without any apparent masses aside from uterine fundus. Her extremities are without any cyanosis, clubbing, or significant edema and are nontender to palpation bilaterally. At the time of presentation, pelvic examination was deferred as the patient was . She delivered in the absence of any physician but Dr. Coelho arrived on the scene shortly after delivery to deliver the placenta and perform perineal laceration repairs. Results Result Diagrams: 04/04/24 19:50 Abnormal Lab Results - Last 24 Hours (Table) 04/04/24 04/05/24 04/05/24 Range/Units 19:50 05:20 05:20 WBC 17.4 H (3.8-10.6) k/uL Hgb 11.2 L (11.4-16.0) gm/dL Neutrophils # 14.4 H (1.3-7.7) k/uL Urine Protein Trace H (Negative) Urine Blood Large H (Negative) Ur Leukocyte Esterase Moderate H (Negative) Urine RBC >182 H (0-5) /hpf Urine WBC 34 H (0-5) /hpf Urine Bacteria Rare H (None) /hpf Urine Mucus Rare H (None) /hpf U Marijuana (THC) Screen Detected H (NotDetected) Assessment and Plan (1) Post-dates Current Visit: Yes Status: Acute Code(s): O48.0 - POST-TERM SNOMED Code(s): 80953428 (2) No care in current Current Visit: Yes Status: Acute Code(s): O09.30 - SUPRVSN OF PREG W INSUFFICIENT ANTENAT CARE, UNSP TRIMESTER SNOMED Code(s): 879209131 Plan: The patient arrived and was imminently delivering in the absence of a physician. The nursing staff was in attendance and delivered the infant. Shortly after that Dr. Coelho arrived and manage the remainder of the delivery including placenta and perineal region laceration repairs. labs will be drawn and a social media developer consult will be placed for no care.
[2024-04-05 09:22] LABS: Hepatitis B Surface Antigen Nonreactive (Nonreactive)
[2024-04-05 13:25] LABS: C. trachomatis,PCR Negative (Negative)
[2024-04-05 19:16] LABS: HIV 2 AB Non-Reactive (Non-Reactive); HIV AB P24 Non-Reactive (Non-Reactive); HIV P24 AG Non-Reactive (Non-Reactive)
--- NOTE | 2024-04-06 08:10 | P.DS ---
Providers Date of admission: 04/04/24 17:35 Expected date of discharge: 04/06/24 Attending physician: Melissa Coelho Primary care physician: Stated None - Discharge Diagnosis(es) (1) No care in current Current Visit: Yes Status: Acute (2) Perineal laceration during delivery Current Visit: Yes Status: Acute (3) Post-dates Current Visit: Yes Status: Acute (4) Precipitous delivery, delivered (current hospitalization) Current Visit: Yes Status: Acute Hospital Course: pt presented in active labor. she underwent a normal vaginal delivery. PP course uneventful. will be discharged home ppd #2 in stable condition to follow up wt me in 6 weeks. Plan - Discharge Summary New Discharge Prescriptions: New Ibuprofen [Motrin] 800 mg PO Q8H #30 tab Sennosides-Docusate Sodium [Senokot-S] 2 each PO BID@799,1999 #10 tab Discharge Medication List Ibuprofen [Motrin] 800 mg PO Q8H #30 tab 04/06/24 [Rx] Sennosides-Docusate Sodium [Senokot-S] 2 each PO BID@ #10 tab 04/06/24 [Rx] Follow up Appointment(s)/Referral(s): Melissa Coelho DO [Doctor of Osteopathic Medicine] - 6 Weeks (6 week follow up appt 05/16/2024 1:45) Discharge Disposition: HOME SELF-CARE
[2024-04-06 10:28] VITALS: BP 107/66; PULSE 64; RESP 18; TEMP 97.8
[2024-04-12 12:10] LABS: N. gonorrhoeae,PCR Negative (Negative)
== END 2024-04-06 15:30 | disposition home or self-care (01) | DRG 560 ==
LOC: FBPOP 17:33 → 4FBP 17:35
PROVIDERS: ADMIT Obstetrics & Gynecology; ATTEND Obstetrics & Gynecology
PROC: 10E0XZZ Delivery of Products of Conception, External Approach (ICD-10-PCS; 2024-04-04)
PROC: 0KQM0ZZ Repair Perineum Muscle, Open Approach (ICD-10-PCS; principal; 2024-04-05)
DX: O48.0 Post-term pregnancy (principal); Z37.0 Single live birth; O99.824 Streptococcus B carrier state complicating childbirth; O70.1 Second degree perineal laceration during delivery; O62.3 Precipitate labor; Z3A.40 40 weeks gestation of pregnancy; Z87.09 Personal history of other diseases of the respiratory system
CPT/HCPCS: 80306; 81001; 85025; 86762; 86803; 86850; 86900; 86901; 87340; 87390; 87491; 87591